=== PATIENT | female | born 1985 | race Caucasian/White ===

== ENCOUNTER 2017-06-21 06:25 | Emergency (ER) | payer OTHER, BC ==
[2017-06-21 06:56] VITALS: RESP 16; TEMP 98.1
[2017-06-21 07:20] VITALS: BP 107/83; PULSE 80; O2SAT 100
== END 2017-06-21 07:18 | disposition home or self-care (01) | DRG 563 ==
LOC: ED 06:25
DX: S39.012A Strain of muscle, fascia and tendon of lower back, initial encounter (principal); X58.XXXA Exposure to other specified factors, initial encounter
CPT/HCPCS: 99282